=== PATIENT | female | born 1965 | race Caucasian/White ===

== ENCOUNTER 2017-05-12 18:02 | Emergency (ER) | payer MEDICAID ==
[~2017-05-12] VITALS: Ht 167.6 cm; Wt 70.0 kg
[2017-05-12 18:05] VITALS: BP 97/58; PULSE 122; RESP 22; TEMP 98.1; O2SAT 96
--- NOTE | 2017-05-12 18:36 | RADRPT ---
EXAM DATE/TIME: 05/12/2017 18:26 [place] COMPARISON: No previous studies available for comparison. INDICATIONS : Left knee pain after fall. MEDICAL HISTORY : None. SURGICAL HISTORY : None. ENCOUNTER: Initial ACUITY: 1 day PAIN SCORE: 10/10 LOCATION: Left knee. FINDINGS: AP, lateral and oblique views of the left knee were obtained and demonstrate a subtle nondisplaced mi ldly comminuted fracture involving the lateral tibial plateau with well-defined fracture lines and no definite depression. Degenerative changes are noted in medial compartment with joint space loss, scl erosis and mild hypertrophic change. There are mild degenerative changes in the patellofemoral joint as well. There is evidence of a large joint effusion. There is diffuse osteopenia. CONCLUSION: 1. Subtle nondisplaced fracture lines extending into the lateral tibial plateau with no definite depr ession. 2. Large joint effusion. 3. Osteopenia and osteoarthritic change. Edwar De La Garza MD on May 12, 2017 at 18:32 Board Certified Radiologist. This report was verified electronically.
[2017-05-12] MEDS ORDERED: ZOFR4TAB PO (18:40)
[2017-05-12] MEDS ORDERED: PERC5TAB12 PO (18:40)
--- NOTE | 2017-05-12 18:44 | PD ---
HPI . Left knee injury Chief Complaint: Injury Time Seen by Provider: 18:30 Travel History International Travel<30 days: No Contact w/Intl Traveler<30days: No Traveled to known affect area: No History of Present Illness HPI Patient presents with chief complaint of a left knee injury. She states that she tripped getting out of the pool and landed on her left knee. She is unsure if she landed directly on the knee or if it was more of a twisting injury. Nonetheless, she is unable to ambulate on her knee. She describes a stiff pain which she rates as 9/10. Has improved with ice. Pain is exacerbated by trying to stand on it. She treated it prior to arrival with ice, elevation and Tylenol. The patient is vacationing here from [place]. [facility] Past Medical History ?: Not Social History Alcohol Use: No Tobacco Use: Yes Substance Use: No Allergies-Medications (Allergen,Severity, Reaction): Coded Allergies: No Known Allergies (Unverified , 05/12/17) Review of Systems Except as stated in HPI: all other systems reviewed are Neg Musculoskeletal: Positive: Arthralgias Physical Exam Narrative GENERAL: Awake and alert and in no acute distress. SKIN: Warm and dry. HEAD: Atraumatic. Normocephalic. EYES: Pupils equal and round. NECK: Trachea midline. CARDIOVASCULAR: Regular rate and rhythm. RESPIRATORY: No accessory muscle use. MUSCULOSKELETAL: Left knee effusion. No gross deformity. I did not check it for stability. She is distally neurovascularly intact. NEUROLOGICAL: Awake and alert. No obvious cranial nerve deficits. Motor grossly within normal limits. Normal speech. PSYCHIATRIC: Appropriate mood and affect; insight and judgment normal. Data Data Last Documented VS Vital Signs Date Time Temp Pulse Resp B/P Pulse Ox O2 Delivery O2 Flow Rate FiO2 05/12/17 18:05 98.1 122 22 97/58 96 Room Air Orders Knee, Complete (4vws) (05/12/17 ) Morphine Inj (Morphine Inj) (05/12/17 18:45) Ondansetron Odt (Zofran Odt) (05/12/17 18:45) MDM Medical Decision Making Medical Screen Exam Complete: Yes Emergency Medical Condition: Yes Differential Diagnosis Differential diagnosis of extremity trauma includes but is not limited to fracture, sprain or strain, dislocation, contusion Narrative Course Patient presents with a left knee injury. She has an effusion. Therefore, she obviously has an internal derangement of her knee. I will obtain x-rays. I will treat her pain with morphine IM. I anticipate treatment with a long-leg knee immobilizer with discharge to home and follow-up with orthopedics when she returns home to [place]. X-ray shows a nondisplaced left tibial plateau fracture. The x-ray was independently viewed by me. Diagnosis Primary Impression: Internal derangement of knee Qualified Code: M23.92 - Internal derangement of knee, left Additional Impression: Closed fracture of lateral portion of left tibial plateau Qualified Code: S82.122A - Closed fracture of lateral portion of left tibial plateau, initial encounter Patient Instructions: General Instructions, RICE Therapy (ED) Additional Instructions: : Orthopedist if symptoms return to [place] to arrange for follow-up treatment. In the meantime, no weightbearing. Keep the knee iced and elevated as much as possible. Med/Other Pt SpecificInfo: Prescription(s) given Scripts Ondansetron (Zofran)4 Mg Tab4 Mg PO Q6HR PRN (NAUSEA OR VOMITING) #15 TAB Ref 0 Prov:Melissa Ramirez MD 05/12/17 Oxycodone-Acetaminophen (Percocet)5-325 mg Tab1-2 Tab PO Q6H PRN (PAIN) #60 TAB Ref 0 Prov:Melissa Ramirez MD 05/12/17 Disposition: DISCHARGE HOME Condition: Stable Melissa Ramirez MD May 12, 2017 18:44
[2017-05-12] MEDS ORDERED: ONDANSETRON ODT 4 MG TAB PO ONE (18:45)
[2017-05-12] MEDS ORDERED: MORPHINE SULFATE 8 MG/ML INJ IM ONE (18:45)
[2017-05-12 19:07] VITALS: BP 115/57; PULSE 101; RESP 18; O2SAT 96
== END 2017-05-12 20:40 | disposition home or self-care (01) ==
LOC: NEPD 18:02
DX: M23.92 Unspecified internal derangement of left knee (principal); S82.142A Displaced bicondylar fracture of left tibia, initial encounter for closed fracture; Z72.0 Tobacco use; W01.0XXA Fall on same level from slipping, tripping and stumbling without subsequent striking against object, initial encounter; Y92.89 Other specified places as the place of occurrence of the external cause
CPT/HCPCS: 73564; 96372; 99284; E0113; J2270; L1830